=== PATIENT | female | born 1940 | race Caucasian/White ===

== ENCOUNTER → 2018-07-25 10:42 | Outpatient (CLI) | payer MEDICARE, SELFPAY ==
--- NOTE | 2018-07-25 | DI.RAD.S_ITS ---
PROCEDURE: XR CHEST 2V INDICATIONS: ACUTE BRONCHITIS TECHNIQUE: 2 views of the chest were acquired. COMPARISON: [facility], CHEST 2 VIEW, 09/12/2011, 13:34. [facility], CHEST 2 VIEW, 09/01/2013, 13:57. FINDINGS: Surgical changes and devices: None. Lungs and pleura: No pleural effusions or pneumothorax. Lungs are clear. Note is made of prominent asymmetric right first anterior rib costochondral calcification. Mediastinum: Mediastinal contours are normal. Heart size is normal. Bones and chest wall: No suspicious bony abnormalities. Soft tissues appear unremarkable. IMPRESSION: No acute cardiopulmonary disease. Dictated by: Junior ROJAS Interpreted: Gabby Altamirano MD on 07/25/2018 at 11:06 Approved by: Gabby Altamirano MD, PhD on 07/25/2018 at 14:36
== END ==
PROVIDERS: Family Provider Family Medicine; PCP Family Medicine; Visit Provider Family Medicine
DX: J20.9 Acute bronchitis, unspecified (principal)
CPT/HCPCS: 71046

== ENCOUNTER → 2019-12-25 12:25 | Outpatient (CLI) | payer MEDICARE, SELFPAY ==
--- NOTE | 2019-12-25 | DI.RAD.S_ITS ---
PROCEDURE: XR KNEE RT 3V INDICATIONS: RT KNEE PAIN TECHNIQUE: 3 views of the knee were acquired. COMPARISON: None. FINDINGS: Bones: No fractures or dislocations. No suspicious bony lesions. Lateral patellar tilt. Spurring at the superior pole of the patella. Mild narrowing of the medial lateral joint spaces. Scattered degenerative subchondral sclerosis and spurring. Small joint effusion. Scattered vascular calcifications noted IMPRESSION: Mild right knee joint degeneration Small joint effusion. If the patient's pain or other symptoms persist, consider further evaluation with MRI Dictated by: Omer Stahl M.D. on 12/25/2019 at 16:36 Approved by: Omer Stahl M.D. on 12/25/2019 at 16:37
== END ==
PROVIDERS: Family Provider Family Medicine; PCP Family Medicine; Referring Provider Family Medicine; Visit Provider Family Medicine
DX: M25.561 Pain in right knee (principal); M17.11 Unilateral primary osteoarthritis, right knee; M25.461 Effusion, right knee
CPT/HCPCS: 73560; 73562

== ENCOUNTER → 2022-09-13 13:59 | Outpatient (CLI) | payer MEDICARE, SELFPAY ==
--- NOTE | 2022-09-13 14:02 | DI.MG.S_ITS ---
BILATERAL DIGITAL SCREENING MAMMOGRAM 3D/2D WITH CAD: 09/13/2022 CLINICAL: Routine screening. Family history of breast cancer. Comparison is made to exams dated: 03/29/2021 mammogram, 03/14/2018 mammogram, and 03/12/2017 mammogram - [facility]. Both breasts are heterogeneously dense, which may obscure small masses (category c / 51-75% glandular tissue). Current study was also evaluated with a Computer Aided Detection (CAD) system. There are benign calcifications in the left breast. There also are benign post operative findings in the right breast. No significant masses, calcifications, or other findings are seen in either breast. There has been no significant interval change. IMPRESSION: BENIGN There is no mammographic evidence of malignancy. A 1 year screening mammogram is recommended. Based on the Tyrer Cuzick model (a risk assessment model) the patient's lifetime risk is 1.6% and her 10 year risk is 0.0%. According to the ACR, ACS, and NCCN guidelines, an annual breast MRI exam along with mammogram is recommended if the patient's lifetime risk is 20% or greater. This exam was interpreted at Station ID: [id number]. NOTE: For mammograms, a report in lay terms will be sent to the patient. Approximately 15% of breast malignancies will not be visualized mammographically. In the management of a palpable breast mass, a negative mammogram must not discourage biopsy of a clinically suspicious lesion. Electronically Signed By: Tasneem [email or web address]/benito:09/13/2022 14:37:54 letter sent: Normal Exam ACR BI-RADS Category 2: Benign Finding(s) 3342F
== END ==
PROVIDERS: Family Provider Family Medicine; PCP Family Medicine; Referring Provider Family Medicine; Visit Provider Family Medicine
DX: Z12.31 Encounter for screening mammogram for malignant neoplasm of breast (principal); Z80.3 Family history of malignant neoplasm of breast
CPT/HCPCS: 77063; 77067

== ENCOUNTER → 2023-12-12 11:43 | Outpatient (CLI) | payer MEDICARE, SELFPAY ==
--- NOTE | 2023-12-12 | DI.MG.S_ITS ---
BILATERAL DIGITAL SCREENING MAMMOGRAM 3D/2D WITH CAD: 12/12/2023 CLINICAL: .Routine screening. Family history of breast cancer. Comparison is made to exams dated: 09/13/2022 mammogram - [facility], 04/21/2021 mammogram, 03/29/2021 mammogram, 03/14/2018 mammogram, and 03/12/2017 mammogram - [facility]. Both breasts are heterogeneously dense, which may obscure small masses (category c / 51-75% glandular tissue). Current study was also evaluated with a Computer Aided Detection (CAD) system. There are benign calcifications in the left breast. There also are benign post operative findings in the right breast. No significant masses, calcifications, or other findings are seen in either breast. There has been no significant interval change. IMPRESSION: BENIGN There is no mammographic evidence of malignancy. A 1 year screening mammogram is recommended. Based on the Tyrer Cuzick model (a risk assessment model) the patient's lifetime risk is 0.6% and her 10 year risk is 0.0%. According to the ACR, ACS, and NCCN guidelines, an annual breast MRI exam along with mammogram is recommended if the patient's lifetime risk is 20% or greater. This exam was interpreted at Station ID: [id number]. NOTE: For mammograms, a report in lay terms will be sent to the patient. Approximately 15% of breast malignancies will not be visualized mammographically. In the management of a palpable breast mass, a negative mammogram must not discourage biopsy of a clinically suspicious lesion. Electronically Signed By: Severo [email or web address]/benito:12/12/2023 16:19:31 letter sent: Normal Exam ACR BI-RADS Category 2: Benign Finding(s) 3342F
== END ==
PROVIDERS: Family Provider Family Medicine; PCP Family Medicine; Referring Provider Family Medicine; Visit Provider Family Medicine
DX: Z12.31 Encounter for screening mammogram for malignant neoplasm of breast (principal); Z80.3 Family history of malignant neoplasm of breast; R92.333 Mammographic heterogeneous density, bilateral breasts
CPT/HCPCS: 77063; 77067

== ENCOUNTER 2024-09-16 12:52 | Inpatient (IN) | payer MEDICARE, SELFPAY ==
[2024-09-16] VITALS (9 sets, daily range): BP systolic 103–142; BP diastolic 57–74; PULSE 90–108; RESP 20–36; TEMP 37.1; O2SAT 89–92; BMI 28.0
--- NOTE | 2024-09-16 13:54 | DI.RAD.S_ITS ---
PROCEDURE: XR CHEST 1V INDICATIONS: Shortness of breath TECHNIQUE: One view of the chest was acquired. COMPARISON: None. FINDINGS: Surgical changes and devices: None. Lungs and pleura: Lungs are clear. No pleural effusions or pneumothorax. Peribronchial cuffing and increased interstitial markings. Mediastinum: Mediastinal contours appear normal. Heart size is mildly enlarged. Bones and chest wall: No suspicious bony lesions. Overlying soft tissues appear unremarkable. IMPRESSION: Peribronchial cuffing and increased interstitial markings, suggestive of pulmonary edema. Bronchitis with superimposed interstitial lung disease is also consideration. Dictated by: Hossein Collins M.D. on 09/16/2024 at 14:56 Approved by: Hossein Collins M.D. on 09/16/2024 at 14:58
--- NOTE | 2024-09-16 14:36 | EKG_ITS ---
[address] [address] Test Date: 2024-09-16 Pat Name: Julia Welch Department: Merged [facility] Room: Gender: Female Occupational Health Rn: MICHELLE : 1940 Requested By: Order Number: [id number] Reading MD: Matthew Dye Measurements Intervals [place] Rate: 102 P: 50 MA: 174 QRS: 4 QRSD: 96 T: 18 QT: 338 QTc: 440 Interpretive Statements Sinus tachycardia with premature atrial complexes Electronically Signed On 09-17-2024 19:03:41 PST by Matthew Dye
[2024-09-16] MEDS: methylPREDNISolone 125 MG/2 ML VIAL IV (14:45)
[2024-09-16 14:46] LABS: Add Manual Diff / Slide Review YES; Hematocrit 40.4 % (36-46); Hemoglobin 13.4 g/dL (12.0-16.0); Mean Corpuscular HGB Conc 33.2 % (30-36); Mean Corpuscular Hemoglobin 31.3 PG (26-34); Platelet Count 371 X10^3/uL (150-400); Red Cell Distribution Width 15.2 % (11.6-14.8); White Blood Cell Count 11.1 X10^3/uL (4.5-11.0)
[2024-09-16] MEDS: ALBUTEROL/IPRATROPIUM 3 ML AMPUL INH (14:46)
[2024-09-16 14:51] LABS: INR 1.1 (0.9-1.3)
[2024-09-16 14:55] LABS: Lactate (Lactic Acid) 1.3 mmol/L (0.7-2.1)
[2024-09-16 14:56] LABS: Alanine Aminotransferase 32 IU/L (<35); Albumin 3.9 g/dL (3.5-5.0); Albumin Globulin Ratio 1.2 (1.0-2.8); Alkaline Phosphatase 109 U/L (38-126); Aspartate Aminotransferase 34 IU/L (14-36); Bilirubin Total 0.7 mg/dL (0.2-1.3); Blood Urea Nitrogen 13 mg/dL (7-17); Calcium 9.1 mg/dL (8.4-10.2); Carbon Dioxide 26 mmol/L (22-32); Chloride 96 mmol/L (98-107); Estimated Glomerular Filt Rate > 60 mL/min (>60); Globulin 3.2 g/dL (1.7-4.1); Glucose 123 mg/dL (80-110); HEMOLYSIS < 15 (0-50); Potassium 3.6 mmol/L (3.4-5.1); Sodium 131 mmol/L (137-145); Total Protein 7.1 g/dL (6.3-8.2)
[2024-09-16 15:00] LABS: Neutrophils Absolute Manual 8880 /uL (3000-5900); RBC Morphology Normal Morphology; Total Cells Counted 100
[2024-09-16 15:08] LABS: NT-proBNP (BNP-Adult 18+) 2150 pg/mL (<450); Troponin I 0.014 ng/mL (0.01-0.034)
[2024-09-16 15:31] LABS: Adenovirus Not Detected (Not Detect); B. parapertussis Not Detected (Not Detecte); Bordetella pertussis Not Detected (Not Detect); Chlamydophila pneumoniae Not Detected (Not Detect); Coronavirus 229E Not Detected (Not Detect); Coronavirus HKU1 Not Detected (Not Detect); Coronavirus NL 63 Not Detected (Not Detect); Coronavirus OC43 Not Detected (Not Detect); Human Metapneumovirus Not Detected (Not Detect); Human Rhinovirus/Enterovirus Not Detected (Not Detect); Influenza A Not Detected (Not Detect); Influenza B Not Detected (Not Detect); Mycoplasma pneumoniae Not Detected (Not Detect); Parainfluenza Virus 1 Not Detected (Not Detect); Parainfluenza Virus 2 Not Detected (Not Detect); Parainfluenza Virus 3 Not Detected (Not Detect); Parainfluenza Virus 4 Not Detected (Not Detect); Respiratory Syncytial Virus Not Detected (Not Detect); SARS- CoV-2 Not Detected (Not Detecte)
[2024-09-16] MEDS: FUROSEMIDE 40 MG/4 ML VIAL IV (17:24)
--- NOTE | 2024-09-16 17:37 | ED_ITS ---
HPI - SOB/Dyspnea General Chief Complaint: Shortness of Breath/Dyspnea Stated Complaint: sob Time Seen by Provider: 09/16/24 17:05 Source: patient, RN notes reviewed and old records reviewed Mode of arrival: Ambulatory Limitations: no limitations History of Present Illness HPI Narrative: [age] year old female history of COPD, chronic tobacco use, hypertension, dyslipidemia, hypothyroidism who presents with complaint of increasing shortness of breath and cough. Patient states started having some mild symptoms on but Sunday really started getting increasingly short of breath has had productive sputum that was initially yellow in his now dark brown, she states no hemoptysis. She has had increasing dyspnea with exertion, she does note some orthopnea. No fevers that she is aware of. Denies any nasal congestion. Denies any chest pain or pressure. No syncope or lightheadedness. She has had some nausea today but no vomiting. No swelling of her extremities. No other GI or urinary symptoms. Patient states she uses Trelegy daily, takes medication for hypertension dyslipidemia no aspirin or other anticoagulants. No known cardiac history or cardiac interventions. States only prior surgeries right hip replacement. Describes allergy to sulfa. Does smoke daily has not had anything in the last several days because her breathing has been too difficult. No alcohol, no recreational drugs. Does not use home O2 states she used while hospitalized for hip replacement in the past but has never required oxygen otherwise. Dr. Friend is her primary care physician. Related Data Home Medications Medication Instructions Recorded Confirmed CHOLECALCIFEROL (VITAMIN D3) 1,000 iu PO ##0 01/06/11 (Vitamin D3) ACETAMINOPHEN (Acetaminophen) 2 tab PO PRN ##0 01/25/11 LEVOTHYROXINE SODIUM (Synthroid) 100 mcg PO QDAY ##0 01/25/11 Loratadine (Claritin) 10 mg PO QDAY ##0 01/25/11 Paroxetine Hydrochloride (Paxil) 40 mg PO PM ##0 01/25/11 [ESTRA-C] 1,000 mg PO QDAY ##0 01/25/11 [OMEGA FISH OIL] 1,000 mg PO QDAY ##0 01/25/11 amlodipine 5 mg tablet (Norvasc) 5 mg PO QDAY ##0 09/25/16 ezetimibe 10 mg tablet (Zetia) 10 mg PO QDAY ##0 09/25/16 fluticasone 100 mcg-salmeterol 50 ##0 09/25/16 mcg/dose blistr powdr for inhalation (Advair Diskus) olmesartan 20 mg tablet (Benicar) 20 mg PO QDAY ##0 09/25/16 olopatadine 0.1 % eye drops ##0 09/25/16 (Patanol) pantoprazole 40 mg tablet,delayed 40 mg PO QDAY ##0 09/25/16 release (Protonix) Allergies Allergy/AdvReac Type Severity Reaction Status Date / Time Sulfa (Sulfonamide Allergy Unknown Verified 09/16/24 14:45 Antibiotics) amlodipine AdvReac Unknown Verified 09/16/24 14:45 NSAIDS (Non-Steroidal AdvReac Unknown Verified 09/16/24 14:45 Anti-Inflamma Review of Systems Review of Systems ROS Unobtainable: All systems reviewed & are unremarkable except as noted in HPI and below Patient History Social History Smoking Status: Former smoker Smoking Status: Former smoker tobacco type: cigarettes Exam Narrative Exam Narrative: GENERAL: Alert and oriented x three, elderly female in moderate distress. HEENT: Head normocephalic, atraumatic, EOMI, pupils reactive, face symmetric, moist mucous membranes NECK: Supple, full range of motion CARDIOVASCULAR: Regular rate and rhythm without murmurs, rubs or gallops. No JVD. No edema bilateral lower extremities. RESPIRATORY: Breath sounds decreased bilaterally but equal, mild tachypnea. Patient has a very harsh wet sounding cough. Mild crackles at the base. ABDOMEN: Soft, nontender. Nondistended. Normoactive bowel sounds all 4 quadrants. No guarding or rebound, rigidity, no mass : No CVA tenderness EXTREMITIES: Normal range of motion, no clubbing or edema. Neurovascularly intact NEUROLOGICAL: Cranial nerves II through XII grossly intact. Moving all extremities SKIN: Warm, dry, no petechiae, no rashes or lesions. Initial Vital Signs Initial Vital Signs: Vital Signs Temperature 98.7 F 09/16/24 13:40 Pulse Rate 105 H 09/16/24 13:40 Respiratory Rate 24 09/16/24 13:40 Blood Pressure 120/73 09/16/24 13:40 Pulse Oximetry 89 L 09/16/24 13:40 Oxygen Delivery Method Room Air 09/16/24 13:40 Course Orders Ordered: ED Orders 09/16/24 13:54 XR chest 1V Stat EKG-12 Lead Stat Measure peak expiratory flow ONCE RT Consult Eval and Treat NOW 09/16/24 14:33 Complete Blood Count AUTO DIFF Stat Comprehensive Metabolic Panel Stat Lactate (Lactic Acid) Stat NT-proBNP (BNP-Adult 18+) Stat Prothrombin Time INR Stat Respiratory Panel (Film Array) Stat Sputum Culture Stat Troponin I Stat Discontinued Medications Albuterol/Ipratropium (Albuterol/Ipratropium 3 Ml Ampul) 3 ml INH NOW ONE Stop: 09/16/24 14:05 Last Admin: 09/16/24 14:46 Dose: 3 ml Documented By: ADRIAN Azithromycin (Azithromycin 250 Mg Tablet) 500 mg PO NOW ONE Stop: 09/16/24 17:46 Last Admin: 09/16/24 17:56 Dose: 500 mg Furosemide (Furosemide 40 Mg/4 Ml Vial) 40 mg IV NOW ONE Stop: 09/16/24 17:06 Last Admin: 09/16/24 17:24 Dose: 40 mg Documented By: JOSE FRANCISCO Ceftriaxone Sodium 1,000 mg/ (Sodium Chloride) 100 mls @ 200 mls/hr IV NOW ONE Stop: 09/16/24 17:41 Last Infusion: 09/16/24 18:34 Dose: Infused Methylprednisolone (Methylprednisolone 125 Mg/2 Ml Vial) 125 mg IV NOW ONE Stop: 09/16/24 14:05 Last Admin: 09/16/24 14:45 Dose: 125 mg Documented By: JOSE FRANCISCO Vital Signs Vital signs: Vital Signs - 8 hr 09/16/24 13:40 09/16/24 14:30 09/16/24 14:30 Temperature 98.7 F Pulse Rate 105 H 108 H Respiratory Rate 24 32 H Blood Pressure 120/73 142/74 H Pulse Oximetry 89 L 91 Oxygen Delivery Method Room Air Oxygen Flow Rate 09/16/24 15:00 09/16/24 15:00 09/16/24 15:30 Temperature Pulse Rate 99 H Respiratory Rate 36 H Blood Pressure 117/60 103/59 L Pulse Oximetry 92 Oxygen Delivery Method Oxygen Flow Rate 09/16/24 15:30 09/16/24 16:00 09/16/24 16:00 Temperature Pulse Rate 97 H 102 H Respiratory Rate 24 36 H Blood Pressure 122/68 Pulse Oximetry 89 L 89 L Oxygen Delivery Method Nasal Cannula Oxygen Flow Rate 1 1 09/16/24 16:30 09/16/24 16:30 09/16/24 17:00 Temperature Pulse Rate 96 H Respiratory Rate 23 Blood Pressure 114/57 L 119/67 Pulse Oximetry 90 L Oxygen Delivery Method Oxygen Flow Rate 1 09/16/24 17:00 Temperature Pulse Rate 94 H Respiratory Rate 20 Blood Pressure Pulse Oximetry 91 Oxygen Delivery Method Oxygen Flow Rate 2 MDM - SOB/Dyspnea Lab Data 09/16/24 14:33 09/16/24 14:33 Labs: Lab Results 09/16/24 Range/Units 14:33 WBC 11.1 H (4.5-11.0) X10^3/uL RBC 4.30 (4.0-5.2) X10^6/uL Hgb 13.4 (12.0-16.0) g/dL Hct 40.4 (36-46) % MCV 94.0 (80-100) fL MCH 31.3 (26-34) PG MCHC 33.2 (30-36) % RDW 15.2 H (11.6-14.8) % Plt Count 371 (150-400) X10^3/uL Neut % (Auto) Not Reportable Lymph % (Auto) Not Reportable [place] % (Auto) Not Reportable Eos % (Auto) Not Reportable Baso % (Auto) Not Reportable Lymph # (Auto) Not Reportable [place] # (Auto) Not Reportable Baso # (Auto) Not Reportable Total Counted 100 Seg Neutrophils % 55.0 (38-70) % Band Neutrophils % 25.0 H (3-7) % Lymphocytes % (Manual) 8.0 L (25-45) % Monocytes % (Manual) 11.0 (2-11) % Metamyelocytes % 1.0 H (-0) % Neutrophils # (Manual) 8880 H (9430-0630) /uL RBC Morphology Normal morphology PT 13.0 H (9.4-12.5) SECONDS INR 1.1 (0.9-1.3) Sodium 131 L (137-145) mmol/L Potassium 3.6 (3.4-5.1) mmol/L Chloride 96 L (98-107) mmol/L Carbon Dioxide 26 (22-32) mmol/L BUN 13 (7-17) mg/dL Creatinine 0.62 (0.52-1.04) mg/dL Estimated GFR > 60 (>60) mL/min BUN/Creatinine Ratio 21.0 (6-22) Glucose 123 H (80-110) mg/dL Lactate 1.3 (0.7-2.1) mmol/L Calcium 9.1 (8.4-10.2) mg/dL Total Bilirubin 0.7 (0.2-1.3) mg/dL AST 34 (14-36) IU/L ALT 32 (<35) IU/L Alkaline Phosphatase 109 (38-126) U/L Troponin I 0.014 (0.01-0.034) ng/mL NT-Pro-B Natriuret Pep 2150 H (<450) pg/mL Total Protein 7.1 (6.3-8.2) g/dL Albumin 3.9 (3.5-5.0) g/dL Globulin 3.2 (1.7-4.1) g/dL Albumin/Globulin Ratio 1.2 (1.0-2.8) Chlamy pneumoniae PCR Not detected (Not Detect) Adenovirus (PCR) Not detected (Not Detect) B. pertussis DNA (PCR) Not detected (Not Detect) B.parapertussis DNA PCR Not detected (Not Detecte) Coronavirus OC43 (PCR) Not detected (Not Detect) Coronavirus HKU1 (PCR) Not detected (Not Detect) Coronavirus 229E (PCR) Not detected (Not Detect) SARS-CoV-2 (PCR) Not detected (Not Detecte) Coronavirus NL63 (PCR) Not detected (Not Detect) Human Metapneumovir PCR Not detected (Not Detect) Influenza Type A (PCR) Not detected (Not Detect) Influenza Type B (PCR) Not detected (Not Detect) M. pneumoniae (PCR) Not detected (Not Detect) Parainfluenza 1 (PCR) Not detected (Not Detect) Parainfluenza 2 (PCR) Not detected (Not Detect) Parainfluenza 3 (PCR) Not detected (Not Detect) Parainfluenza 4 (PCR) Not detected (Not Detect) RSV (PCR) Not detected (Not Detect) Entero/Rhino (PCR) Not detected (Not Detect) Imaging Data Chest x-ray: Radiologist's Impression: [address] [address] XRay Report Signed Patient: Julia Welch MR#: [id number] : 1940 Acct:[id number] Age/Sex: 83 / F Date of Service: 09/16/24 Loc: ED Accession Number: [id number] Procedure: XR chest 1V Ordering Provider: Aurea Zapien D.O. PROCEDURE: XR CHEST 1V INDICATIONS: Shortness of breath TECHNIQUE: One view of the chest was acquired. COMPARISON: None. FINDINGS: Surgical changes and devices: None. Lungs and pleura: Lungs are clear. No pleural effusions or pneumothorax. Peribronchial cuffing and increased interstitial markings. Mediastinum: Mediastinal contours appear normal. Heart size is mildly enlarged. Bones and chest wall: No suspicious bony lesions. Overlying soft tissues appear unremarkable. IMPRESSION: Peribronchial cuffing and increased interstitial markings, suggestive of pulmonary edema. Bronchitis with superimposed interstitial lung disease is also consideration. Dictated by: Hossein Collins M.D. on 09/16/2024 at 14:56 Approved by: Hossein Collins M.D. on 09/16/2024 at 14:58 ECG Data Attestation: I personally reviewed and interpreted this ECG as follows: Interpretation: Sinus tachycardia rate of 102 MA 174 QRS of 96 QTC of 440. Nonspecific change. Appears to have little bit of motion artifact in lateral leads MDM Narrative Medical decision making narrative: 83-year-old female history of COPD who arrives slightly tachycardic hypoxic requiring 1 2 L of O2 which is atypical. Symptoms began last and has been worsening with increasing shortness of breath and exertional dyspnea. EKG shows sinus tachycardia. Chest x-ray shows peribronchial cuffing increased interstitial markings suggesting pulmonary edema bronchitis superimposed interstitial lung disease also consideration. Labs show a white count of 11, hemoglobin of 13 with platelets of 371, patient has 25% bands low lymphocytes with manual count of 8880 neutrophils. INR is 1, sodium is 131 potassium 3.6 chloride 96 CO2 is 26 with a BUN of 13 creatinine 0.62 glucose of 123 lactate 1.3 LFTs are negative troponin 0.014 with a BNP of 2150, no priors for comparison. Respiratory panel negative Patient received Solu-Medrol 125 mg, DuoNeb well as 40 mg Lasix patient states she feels much improved after these treatments. Patient has only had about 100 mL of urine out since her Lasix. She is still requiring 1-2 L to maintain 91%. States she was never been below 90% that she was aware of for her room air. Patient was also given Rocephin and azithromycin as there maybe a component of pneumonia has a bandemia of 25%. Spoke with hospitalist, Dr. Dye accepts for observation. Discharge Plan Departure Patient Disposition: Admitted as Observation Clinical Impression: Pneumonia, Acute exacerbation of chronic obstructive pulmonary disease Admit Date/Time: 09/16/24 18:37 Admit Provider: Matthew Dye
[2024-09-16] MEDS: cefTRIAXone 1,000 MG in SODIUM CHLORIDE 0.9% 100 ML 200 MG IV (17:56)
[2024-09-16] MEDS: AZITHROMYCIN 250 MG TABLET 500 MG PO (17:56)
--- NOTE | 2024-09-16 18:52 | DI.ECHO.S_ITS ---
[place] [facility]+ [facility] : : [address] : : [place] MD : : [id number] : : Phone: [phone] Echocardiogram Report + + :Name: FARZAD CALVILLO Study Date: 09/17/2024 Height: 62 in : :[facility] ReadingLocation: Weight: 153 lb : : Gender: Female BSA: 1.7 m2 : :: 1940 Age: 83 yrs BP: 112/70 mmHg: :Reason For Study: HYPOXIA : :Ordering Physician: NEO, : :ЮЛИЯ ALLEN Performed By: Nessa Rosen : :Referring: ЮЛИЯ LARSON : + + Interpretation Summary Normal sinus rhythm with heart rate 94-107 bpm during the exam. Normal LV size and wall thickness. Normal wall motion and LV systolic function. Ejection fraction 60-65%. Normal chamber sizes. No significant valvular abnormalities. Estimated PA systolic pressure is 45 mmHg assuming right atrial pressure of 8 mmHg. There is no prior echo available for comparison. Procedure: A two-dimensional transthoracic echocardiogram with color flow and Doppler was performed. The study quality was technically adequate. There is no prior echocardiogram noted for this patient. The patient was in sinus tachycardia with heart rates between 94-109 bpm during the exam. Left Ventricle: Proximal septal thickening is noted. The left ventricle is normal in size. The ejection fraction is estimated to be 60-65%. Right Ventricle: The right ventricle is normal in size, thickness and function. Atria: The left atrial size is normal. Right atrial size is normal. There is no Doppler evidence for an interatrial shunt. Mitral Valve: The mitral valve leaflets appear mildly thickened, but open well. There is mild mitral annular calcification. The mitral valve leaflets are slightly calcified. There is no mitral regurgitation noted. Aortic Valve: The aortic valve is trileaflet. The aortic valve opens well. There is no aortic valve stenosis. No aortic regurgitation is present. Tricuspid Valve: The tricuspid valve is normal in structure and function. There is mild tricuspid regurgitation. The right ventricular systolic pressure is estimated to be at least 45 mmHg based on an estimated right atrial pressure of 8 mm Hg. Pulmonic Valve: The pulmonic valve is not well seen, but is grossly normal. There is mild pulmonic regurgitation. Great Vessels: The aortic root is normal size. The dimensions of the ascending aorta are normal. The IVC is dilated (diameter is greater than 2.1 cm) yet it collapses greater than 50% with a sniff. This suggests a right atrial pressure of 8 mm Hg. Pericardium/ Pleura There is no pericardial effusion. There is no pleural effusion. MMode/2D Measurements & Calculations LVIDd: 4.7 cm LVOT diam: 2.0 cm LVIDs: 3.0 cm Ao root diam: 3.3 cm FS: 36.2 % asc Aorta Diam: 3.8 cm IVSd: 0.75 cm Ao Arch Diam (Prox Trans): 2.7 cm LVPWd: 0.76 cm LV draper. diameter/BSA (cm/m^2): 2.7 LV sys. diameter/BSA (cm/m^2): 1.7 LA A2 area: 20.8 cm2 RA long axis: 4.2 cm LA A4 area: 16.0 cm2 RA area: 11.1 cm2 LA length (vol): 5.1 cm RA vol: 24.6 ml LA vol: 55.8 ml RA : 14.4 ml/m2 LA vol index: 32.7 ml/m2 IVC diam: 2.3 cm RVD1 (basal): 3.7 cm TAPSE: 2.0 cm Doppler Measurements & Calculations Ao V2 max: 172.4 cm/sec LVOT Max Job: 138.5 cm/sec Ao V2 mean: 118.1 cm/sec LV V1 max P.7 mmHg Ao max P.9 mmHg LV V1 VTI: 26.3 cm Ao mean P.4 mmHg GREGORIO(I,D): 2.6 cm2 Ao V2 VTI: 31.7 cm GREGORIO(V,D): 2.5 cm2 sev ratio: 0.83 GREGORIO indexed to BSA (cm^2/m^2): 1.5 MV E max job: 82.5 cm/sec TR max job: 304.1 cm/sec MV A max job: 112.4 cm/sec TR max P.0 mmHg MV E/A: 0.73 PA V2 max: 98.3 cm/sec Med Peak E' Job: 8.3 cm/sec PA V2 mean: 68.8 cm/sec E/E' med: 9.9 PA mean P.1 mmHg Lat Peak E' Job: 10.0 cm/sec PA pr(Accel): 49.5 mmHg E/E' lat: 8.2 E/e' average: 9.1 MV dec time: 0.21 sec MVA(VTI): 2.8 cm2 MV V2 mean: 74.4 cm/sec SV(LVOT): 81.8 ml MV mean P.5 mmHg MV V2 VTI: 29.7 cm Electronically signed by: Connie Walters M.D. on Reading Physician:09/17/2024 02:49 PM
[2024-09-17] VITALS (14 sets, daily range): BP systolic 98–127; BP diastolic 64–77; PULSE 77–101; RESP 18–22; TEMP 35.9–36.9; O2SAT 92–97
[2024-09-17 04:41] LABS: Add Manual Diff / Slide Review NO; Basophils Absolute Auto 0 /uL (0-100); Basophils Percent Auto 0.3 % (0-2); Eosinophils Absolute Auto 0 /uL (0-450); Hematocrit 37.7 % (36-46); Hemoglobin 12.7 g/dL (12.0-16.0); Lymphocytes Absolute Auto 800 /uL (1100-4500); Lymphocytes Percent Auto 10.5 % (25-40); Mean Corpuscular HGB Conc 33.5 % (30-36); Mean Corpuscular Hemoglobin 31.5 PG (26-34); Mean Corpuscular Volume 93.9 fL (80-100); Monocytes Absolute Auto 300 /uL (0-900); Monocytes Percent Auto 3.5 % (3-14); Neutrophils Absolute Auto 6500 /uL (1500-7000); Neutrophils Percent Auto 85.7 % (50-75); Platelet Count 337 X10^3/uL (150-400); Red Blood Cell Count 4.02 X10^6/uL (4.0-5.2); Red Cell Distribution Width 15.2 % (11.6-14.8); White Blood Cell Count 7.6 X10^3/uL (4.5-11.0)
[2024-09-17 04:53] LABS: Alanine Aminotransferase 29 IU/L (<35); Albumin 3.4 g/dL (3.5-5.0); Albumin Globulin Ratio 1.1 (1.0-2.8); Alkaline Phosphatase 95 U/L (38-126); Aspartate Aminotransferase 27 IU/L (14-36); BUN Creatinine Ratio 29.9 (6-22); Bilirubin Total 0.4 mg/dL (0.2-1.3); Blood Urea Nitrogen 20 mg/dL (7-17); Calcium 8.5 mg/dL (8.4-10.2); Carbon Dioxide 28 mmol/L (22-32); Chloride 98 mmol/L (98-107); Estimated Glomerular Filt Rate > 60 mL/min (>60); Glucose 137 mg/dL (80-110); HEMOLYSIS < 15 (0-50); Magnesium 1.7 mg/dL (1.6-2.3); Potassium 3.3 mmol/L (3.4-5.1); Sodium 133 mmol/L (137-145); Total Protein 6.4 g/dL (6.3-8.2)
--- NOTE | 2024-09-17 05:18 | PM.HP.1 ---
History of Present Illness History of Present Illness Chief complaint: sob Narrative: 83-year-old male female with past medical history of COPD non O2 dependent, hypertension, lipidemia, hypothyroidism and chronic tobacco abuse presents with complain of shortness of breath and coughing. Per the patient report, over the last few days, the patient has been having increasing shortness of breath and cough. The patient also have orthopnea and with some leg swelling. The patient states that his cough has dark brown sputum. The patient has some nausea but denies any fever, chills, vomiting, chest pain, diarrhea. In our emergency room, patient was found to have signs of? volume overload. Chest x-ray shows pulmonary edema and possible interstitial marking. BNP was 2150s. No sepsis. The patient was given solumedrol,? IV Lasix 40 mg x 1, Azithromycin, Ceftrixone and nebs PFSH Medical History (Updated 09/16/24 @ 20:32 by Shahida Emery RN) H pylori ulcer GERD (gastroesophageal reflux disease) Depression Hyperthyroidism HTN (hypertension) Surgical History (Updated 09/16/24 @ 20:32 by Shahida Emery RN) H/O total hip arthroplasty Social History household members: children Smoking Status: Former smoker alcohol intake: never Meds Home Medications and Allergies Home Medications Medication Instructions Recorded Confirmed Type CHOLECALCIFEROL (VITAMIN D3) 1,000 iu PO DAILY ##0 01/06/11 09/16/24 History (Vitamin D3) ACETAMINOPHEN (Acetaminophen) 2 tab PO PRN ##0 01/25/11 09/16/24 History LEVOTHYROXINE SODIUM (Synthroid) 100 mcg PO QDAY ##0 01/25/11 09/16/24 History Loratadine (Claritin) 10 mg PO QDAY ##0 01/25/11 09/16/24 History Paroxetine Hydrochloride (Paxil) 40 mg PO PM ##0 01/25/11 09/16/24 History [ESTRA-C] 1,000 mg PO QDAY ##0 01/25/11 09/16/24 History [OMEGA FISH OIL] 1,000 mg PO QDAY ##0 01/25/11 09/16/24 History amlodipine 5 mg tablet (Norvasc) 5 mg PO QDAY ##0 09/25/16 09/16/24 History ezetimibe 10 mg tablet (Zetia) 10 mg PO QDAY ##0 09/25/16 09/16/24 History pantoprazole 40 mg tablet,delayed 40 mg PO QDAY ##0 09/25/16 09/16/24 History release (Protonix) Allergies Allergy/AdvReac Type Severity Reaction Status Date / Time Sulfa (Sulfonamide Allergy Unknown Verified 09/16/24 14:45 Antibiotics) amlodipine AdvReac Unknown Verified 09/16/24 14:45 NSAIDS (Non-Steroidal AdvReac Unknown Verified 09/16/24 14:45 Anti-Inflamma Review of Systems Review of Systems ROS: Yes All systems reviewed with the patient and are negative except as otherwise documented Exam Vital Signs (past 8 hours): - 09/17/24 00:00 09/17/24 04:00 Temperature 98.5 F 97.6 F Pulse Rate 82 77 Respiratory Rate 20 Blood Pressure 108/66 112/70 Pulse Oximetry 92 94 Oxygen Flow Rate 2 2 Fraction of Inspired Oxygen 28 SaO2/FiO2 Ratio 325 Oxygen Delivery Method Nasal Cannula Oxygen Flow Rate 2 Narrative Exam Narrative: GENERAL: The patient is not in any acute distressed. Awake and alert. HEENT: Nonicteric sclerae, PERRLA, EOMI. Oropharynx clear. Moist mucous membranes. Conjunctivae appear well perfused. HEART: Regular rate and rhythm without murmurs. traced extremities edema. LUNGS: mild bilateral basilar crackles but otherwise Clear to auscultation bilaterally. No wheezing or rhonchi ABDOMEN: Soft, positive bowel sounds, nontender. SKIN: No rash, no excessive bruising, petechiae, or purpura. NEUROLOGIC: AxO x 3. Cranial nerves II-XII intact without motor/sensory deficit. Objective Labs 09/17/24 04:29 09/17/24 04:29 Labs: Laboratory Results - last 24 hr 09/16/24 09/17/24 14:33 04:29 WBC 11.1 H 7.6 RBC 4.30 4.02 Hgb 13.4 12.7 Hct 40.4 37.7 MCV 94.0 93.9 MCH 31.3 31.5 MCHC 33.2 33.5 RDW 15.2 H 15.2 H Plt Count 371 337 Neut % (Auto) Not Reportable 85.7 H Lymph % (Auto) Not Reportable 10.5 L [place] % (Auto) Not Reportable 3.5 Eos % (Auto) Not Reportable 0.0 L Baso % (Auto) Not Reportable 0.3 Neut # (Auto) 6500 Lymph # (Auto) Not Reportable 800 L [place] # (Auto) Not Reportable 300 Eos # (Auto) 0 Baso # (Auto) Not Reportable 0 Total Counted 100 Seg Neutrophils % 55.0 Band Neutrophils % 25.0 H Lymphocytes % (Manual) 8.0 L Monocytes % (Manual) 11.0 Metamyelocytes % 1.0 H Neutrophils # (Manual) 8880 H RBC Morphology Normal morphology PT 13.0 H INR 1.1 Sodium 131 L 133 L Potassium 3.6 3.3 L Chloride 96 L 98 Carbon Dioxide 26 28 BUN 13 20 H Creatinine 0.62 0.67 Estimated GFR > 60 > 60 BUN/Creatinine Ratio 21.0 29.9 H Glucose 123 H 137 H Lactate 1.3 Calcium 9.1 8.5 Magnesium 1.7 Total Bilirubin 0.7 0.4 AST 34 27 ALT 32 29 Alkaline Phosphatase 109 95 Troponin I 0.014 NT-Pro-B Natriuret Pep 2150 H Total Protein 7.1 6.4 Albumin 3.9 3.4 L Globulin 3.2 3.0 Albumin/Globulin Ratio 1.2 1.1 Chlamy pneumoniae PCR Not detected Adenovirus (PCR) Not detected B. pertussis DNA (PCR) Not detected B.parapertussis DNA PCR Not detected Coronavirus OC43 (PCR) Not detected Coronavirus HKU1 (PCR) Not detected Coronavirus 229E (PCR) Not detected SARS-CoV-2 (PCR) Not detected Coronavirus NL63 (PCR) Not detected Human Metapneumovir PCR Not detected Influenza Type A (PCR) Not detected Influenza Type B (PCR) Not detected M. pneumoniae (PCR) Not detected Parainfluenza 1 (PCR) Not detected Parainfluenza 2 (PCR) Not detected Parainfluenza 3 (PCR) Not detected Parainfluenza 4 (PCR) Not detected RSV (PCR) Not detected Entero/Rhino (PCR) Not detected Assessment & Plan Assessment & Plan narrative: COPD exacerbation. Admit the patient to medical telemetry inpatient. Continue Solumedrol and nebulizer. Possible bronchitis. Continue Azithromycin and Ceftriaxone Possible acute HF. S/P IV Lasix 40 mg x1 in the ER. Continue 40 mg IV daily. Strict I/Os and daily weight. Echo pending. Hypothyroidism. Resume home Synthroid Hypertension monitor blood pressure and resume home medication accordingly. DVT prophylaxis Lovenox. Code status full code? Disposition likely home in 2 to 3 days Time-Based Coding :: [TOTAL MINUTES] spent with patient and on the chart (including review of chart, obtaining history, exam, reviewing outside data, placing orders, documenting exam and treatment plan, and counseling patient) on [DATE].
[2024-09-17] MEDS: PANTOPRAZOLE DR 40 MG TABLET PO (05:55)
[2024-09-17] MEDS: LEVOTHYROXINE 100 MCG TABLET PO (05:55)
[2024-09-17] MEDS: methylPREDNISolone 125 MG/2 ML VIAL 60 MG IV ×2 (06:13)
[2024-09-17] MEDS: BUDESONIDE 0.5 MG/2 ML NEB INH ×2 (08:43→19:26)
[2024-09-17] MEDS: ALBUTEROL/IPRATROPIUM 3 ML AMPUL INH ×5 (08:44→23:20)
[2024-09-17] MEDS: predniSONE 20 MG TABLET 40 MG PO (08:47)
[2024-09-17] MEDS: FUROSEMIDE 40 MG/4 ML VIAL IV (08:47)
[2024-09-17] MEDS: EZETIMIBE 10 MG TABLET PO (08:48)
[2024-09-17] MEDS: ENOXAPARIN 40 MG/0.4 ML SYRINGE SUBCUT (08:48)
[2024-09-17] MEDS: LORATADINE 10 MG TABLET PO (08:48)
--- NOTE | 2024-09-17 11:07 | CM.DANOTE ---
DCP Assessment note pt is a 83yo F here with COPD exacerbation and pneumonia. possible HF. PCP Chris Friend Payer Medicare and [employer] LAPIDARIST reviewed EMR. Per chart review, pt on 2ltrs O2 at this time, no O2 at baseline. Per RN report, pt weaker than normal right now, 1PA to bedside commode. Per hospitalist in morning rounds, echo pending. likely here another few days. LAPIDARIST entered room and introduced self and role. pt resting in bed. Lives at home in [place] with son Junior. Has a walker/cane from previous surgery but does not use them. no hx of SNF or HH. frequently goes to gym and out to old [employer] home to play cards with her friends. does not drive, Junior or Ashley takes her places. Has hired housekeepers to manage home chores. Reports feeling weaker than normal with mobility. Open to considering PT tomorrow if still weak, does not think she would want HH but will think about it. Denies any DCP/CM needs at this time. P: home with son to transport in P[place] when medically stable. r/o need for PT closer to dc. no identified barriers to safe dc home at this time. CM team will continue to follow closely RADHA Lamar Discharge Planning/Care Management CM Discharge Assessment Start: 09/17/24 11:05 Freq: Status: Active Protocol: Document 09/17/24 11:05 (Rec: 09/17/24 11:07 [id number]) Discharge Planning Assessment Assigned Personnel Assistant RADHA Robison DPOA/Assigned Designee Name zoya Pacheco Contact Information [phone] Advance Directives? No History Provided By Patient Prior Living Arrangements House Household Members children Type of transporation used prior to Relies on Others admit Comment either son Junior or ashley Independent with ADL's Yes Is patient alert and oriented? Yes Needs Assistance With Home Chores / Shopping Comment pt has housekeepers come in to clean home DME Already Rented / Owned FWW / Walker,Cane Comment owns a walker and cane from previous hip surgery but does not use them Comment r/o need for PT eval/HH closer to dc Discharge Plan Home Transportation Arrangement zoya Pacheco in POV Referrals Initiated None needed Whiteboard Updated in Patient Room with Yes name and ext. # of Personnel Assistant Review Status In Process Please Provide Date Initial DC 09/17/24 Assessment Was Performed Next Review Type Continued Stay Review
[2024-09-17] MEDS: POTASSIUM CHLORIDE 20 MEQ TAB 40 MEQ PO (11:09)
--- NOTE | 2024-09-17 13:06 | P.PN_ITS ---
Subjective Subjective Interval history: 83 year old female admitted with hypoxic respiratory failure, desat on room air to 87% at bedside during today's exam. Improved with 1L. She feels improved today with improved dyspnea. States her son has been sneezing and coughing but he has lots of allergies and that is not unusual for him. Respiratory culture has a gram negative coccobacilli. Placed on droplet isolation for possible pertussis as the ER provider yesterday described her cough (now improved today) as whooping cough like. Exam Vital Signs (past 8 hours): - 09/17/24 08:00 09/17/24 08:48 09/17/24 09:24 Temperature 96.6 F L Pulse Rate 81 Respiratory Rate 18 Blood Pressure 127/77 Pulse Oximetry 93 95 93 Oxygen Delivery Method Nasal Cannula Nasal Cannula Oxygen Flow Rate 0 3 2 Fraction of Inspired Oxygen 28 09/17/24 11:34 Temperature Pulse Rate 98 H Respiratory Rate 18 Blood Pressure Pulse Oximetry 92 Oxygen Delivery Method Nasal Cannula Oxygen Flow Rate 2 Fraction of Inspired Oxygen Fraction of Inspired Oxygen 28 SaO2/FiO2 Ratio 332 Oxygen Delivery Method Nasal Cannula Oxygen Flow Rate 2 Narrative Exam Narrative: GENERAL: The patient is not in any acute distressed. Awake and alert. HEENT: Nonicteric sclerae, PERRLA, EOMI. Oropharynx clear. Moist mucous membranes. Conjunctivae appear well perfused. HEART: Regular rate and rhythm without murmurs. traced extremities edema. LUNGS: mild bilateral basilar crackles but otherwise Clear to auscultation bilaterally. No wheezing or rhonchi ABDOMEN: Soft, positive bowel sounds, nontender. SKIN: No rash, no excessive bruising, petechiae, or purpura. NEUROLOGIC: AxO x 3. Cranial nerves II-XII intact without motor/sensory deficit. Objective Labs 09/17/24 04:29 09/17/24 04:29 Labs: Laboratory Results - last 24 hr 09/16/24 09/17/24 14:33 04:29 WBC 11.1 H 7.6 RBC 4.30 4.02 Hgb 13.4 12.7 Hct 40.4 37.7 MCV 94.0 93.9 MCH 31.3 31.5 MCHC 33.2 33.5 RDW 15.2 H 15.2 H Plt Count 371 337 Neut % (Auto) Not Reportable 85.7 H Lymph % (Auto) Not Reportable 10.5 L [place] % (Auto) Not Reportable 3.5 Eos % (Auto) Not Reportable 0.0 L Baso % (Auto) Not Reportable 0.3 Neut # (Auto) 6500 Lymph # (Auto) Not Reportable 800 L [place] # (Auto) Not Reportable 300 Eos # (Auto) 0 Baso # (Auto) Not Reportable 0 Total Counted 100 Seg Neutrophils % 55.0 Band Neutrophils % 25.0 H Lymphocytes % (Manual) 8.0 L Monocytes % (Manual) 11.0 Metamyelocytes % 1.0 H Neutrophils # (Manual) 8880 H RBC Morphology Normal morphology PT 13.0 H INR 1.1 Sodium 131 L 133 L Potassium 3.6 3.3 L Chloride 96 L 98 Carbon Dioxide 26 28 BUN 13 20 H Creatinine 0.62 0.67 Estimated GFR > 60 > 60 BUN/Creatinine Ratio 21.0 29.9 H Glucose 123 H 137 H Lactate 1.3 Calcium 9.1 8.5 Magnesium 1.7 Total Bilirubin 0.7 0.4 AST 34 27 ALT 32 29 Alkaline Phosphatase 109 95 Troponin I 0.014 NT-Pro-B Natriuret Pep 2150 H Total Protein 7.1 6.4 Albumin 3.9 3.4 L Globulin 3.2 3.0 Albumin/Globulin Ratio 1.2 1.1 Chlamy pneumoniae PCR Not detected Adenovirus (PCR) Not detected B. pertussis DNA (PCR) Not detected B.parapertussis DNA PCR Not detected Coronavirus OC43 (PCR) Not detected Coronavirus HKU1 (PCR) Not detected Coronavirus 229E (PCR) Not detected SARS-CoV-2 (PCR) Not detected Coronavirus NL63 (PCR) Not detected Human Metapneumovir PCR Not detected Influenza Type A (PCR) Not detected Influenza Type B (PCR) Not detected M. pneumoniae (PCR) Not detected Parainfluenza 1 (PCR) Not detected Parainfluenza 2 (PCR) Not detected Parainfluenza 3 (PCR) Not detected Parainfluenza 4 (PCR) Not detected RSV (PCR) Not detected Entero/Rhino (PCR) Not detected PFSH Medical History (Updated 09/17/24 @ 06:27 by Shahida Emery RN) COPD (chronic obstructive pulmonary disease) H pylori ulcer GERD (gastroesophageal reflux disease) Depression Hyperthyroidism HTN (hypertension) Surgical History (Updated 09/16/24 @ 20:32 by Shahida Emery RN) H/O total hip arthroplasty Social History household members: children Smoking Status: Former smoker alcohol intake: never Assessment & Plan Assessment & Plan narrative: Bacterial pneumonia with gram negative coccobacilli with acute respiratory failure with hypoxia. - continue ceftriaxone and azithromycin IV - await culture results as may affect isolation recommendations after discharge. Placed on isolation for possible pertussis. - Elevated Class IV PSI score, can change to inpatient status - clinically improved today, WBC now normal, patient improved but still requiring supplemental oxygen today. Possible COPD with exacerbation - continue prednisone 40 mg daily. Possible acute heart failure. S/P IV Lasix 40 mg x1 in the ER. Continue 40 mg IV daily. ProBNP 2150. Strict I/Os and daily weight. Echo still pending but was performed this morning. Troponin was within normal limits, no chest pain, and EKG shows no evidence of acute ischemic changes. Hypothyroidism. Resume home Synthroid Hypertension monitor blood pressure and resume home medication accordingly. currently holding home amlodipine 5 mg. DVT prophylaxis Lovenox. Code status full code, surrogate is patient's son Disposition, inpatient likely home in 1-2 more days if continued improvement and resolution of hypoxia. Time-Based Coding :: [TOTAL MINUTES] spent with patient and on the chart (including review of chart, obtaining history, exam, reviewing outside data, placing orders, documenting exam and treatment plan, and counseling patient) on [DATE].
[2024-09-17] MEDS: AZITHROMYCIN 500 MG in DEXTROSE 5% IN WATER 250 ML 250 MG IV (18:48)
[2024-09-17] MEDS: cefTRIAXone 1,000 MG in SODIUM CHLORIDE 0.9% 100 ML 200 MG IV (20:17)
[2024-09-17] MEDS: PARoxetine 20 MG TABLET 40 MG PO (20:17)
[2024-09-18] VITALS (7 sets, daily range): BP systolic 113–122; BP diastolic 63–70; PULSE 79–106; RESP 17–20; TEMP 36.4–36.6; O2SAT 91–96
[2024-09-18] MEDS: PANTOPRAZOLE DR 40 MG TABLET PO (05:24)
[2024-09-18] MEDS: LEVOTHYROXINE 100 MCG TABLET PO (05:24)
[2024-09-18 05:33] LABS: Add Manual Diff / Slide Review NO; Basophils Absolute Auto 0 /uL (0-100); Basophils Percent Auto 0.1 % (0-2); Eosinophils Absolute Auto 0 /uL (0-450); Hemoglobin 12.1 g/dL (12.0-16.0); Lymphocytes Absolute Auto 1100 /uL (1100-4500); Mean Corpuscular HGB Conc 33.6 % (30-36); Mean Corpuscular Hemoglobin 31.2 PG (26-34); Mean Corpuscular Volume 92.9 fL (80-100); Monocytes Absolute Auto 600 /uL (0-900); Monocytes Percent Auto 5.3 % (3-14); Neutrophils Absolute Auto 10100 /uL (1500-7000); Neutrophils Percent Auto 85.6 % (50-75); Platelet Count 374 X10^3/uL (150-400); Red Blood Cell Count 3.88 X10^6/uL (4.0-5.2); Red Cell Distribution Width 14.9 % (11.6-14.8); White Blood Cell Count 11.8 X10^3/uL (4.5-11.0)
[2024-09-18 05:45] LABS: Alanine Aminotransferase 40 IU/L (<35); Albumin 3.2 g/dL (3.5-5.0); Albumin Globulin Ratio 1.2 (1.0-2.8); Alkaline Phosphatase 109 U/L (38-126); Aspartate Aminotransferase 46 IU/L (14-36); BUN Creatinine Ratio 42.1 (6-22); Bilirubin Total 0.3 mg/dL (0.2-1.3); Blood Urea Nitrogen 32 mg/dL (7-17); Calcium 8.6 mg/dL (8.4-10.2); Carbon Dioxide 27 mmol/L (22-32); Chloride 96 mmol/L (98-107); Estimated Glomerular Filt Rate > 60 mL/min (>60); Globulin 2.7 g/dL (1.7-4.1); Glucose 134 mg/dL (80-110); HEMOLYSIS < 15 (0-50); Magnesium 1.8 mg/dL (1.6-2.3); Potassium 3.6 mmol/L (3.4-5.1); Sodium 130 mmol/L (137-145); Total Protein 5.9 g/dL (6.3-8.2)
[2024-09-18] MEDS: ALBUTEROL/IPRATROPIUM 3 ML AMPUL INH ×2 (07:51→10:29)
[2024-09-18] MEDS: BUDESONIDE 0.5 MG/2 ML NEB INH (07:51)
[2024-09-18] MEDS: FUROSEMIDE 40 MG/4 ML VIAL IV (08:42)
[2024-09-18] MEDS: LORATADINE 10 MG TABLET PO (08:42)
[2024-09-18] MEDS: ENOXAPARIN 40 MG/0.4 ML SYRINGE SUBCUT (08:42)
[2024-09-18] MEDS: predniSONE 20 MG TABLET 40 MG PO (08:42)
--- NOTE | 2024-09-18 14:30 | P.DS_ITS ---
History of Present Illness History of Present Illness Chief complaint: sob Narrative: Per H&P: 83-year-old male female with past medical history of COPD non O2 dependent, hypertension, lipidemia, hypothyroidism and chronic tobacco abuse presents with complain of shortness of breath and coughing. Per the patient report, over the last few days, the patient has been having increasing shortness of breath and cough. The patient also have orthopnea and with some leg swelling. The patient states that his cough has dark brown sputum. The patient has some nausea but denies any fever, chills, vomiting, chest pain, diarrhea. In our emergency room, patient was found to have signs of? volume overload. Chest x-ray shows pulmonary edema and possible interstitial marking. BNP was 2150s. No sepsis. The patient was given solumedrol,? IV Lasix 40 mg x 1, Azithromycin, Ceftrixone and nebs Discharge Providers Provider Date of admission: 09/17/24 11:06 Discharge Date: 09/18/24 Primary care physician: Chris Friend MD Consults: 09/18/24 10:12 Consult to Physical Therapy Evaluate & Treat Comment: Physician Instructions: Evaluate and Treat 09/18/24 10:27 Consult to Physical Therapy Evaluate & Treat Comment: Physician Instructions: Evaluate and Treat Discharge provider: Shadi Philippe MD Summary Hospital Course Discharge Diagnosis: 1. Haemophilus pneumonia with gram negative coccobacilli with acute respiratory failure with hypoxia. Present on admission and improved. - Sputum with Haemophilus. She was able to come off from oxygen on the day of discharge. 2. Possible COPD with exacerbation. Present on admission and improved. - Was given prednisone 40 mg daily. no wheezing in the day of discharge. 3. Hypothyroidism. Present on admission and stable. -Resume home Synthroid 4. Hypertension , present on admission and stable. - monitor blood pressure and resume home medication accordingly. currently holding home amlodipine 5 mg. Hospital Course: She was admitted for pneumonia and COPD exacerbation and treated with IV ceftriaxone and azithromycin. She was able to wean off from oxygen without difficulty and was able to ambulate on the day of discharge. She had no fevers and normal labs. There was concern of the possibility of heart failure, an echo was obtained and was unremarkable. She was eager to return home and her son was happy to bring her home on September 18. She will continue antibiotics for an additional 5 days which would be directed at Haemophilus. She declines home health with physical therapy and nursing. Status at Discharge Cognitive/behavioral status at discharge: oriented Functional status at discharge: independent ambulation Overall status at discharge: patient is back to baseline Time Spent with Patient Time spent: Greater than 30 minutes Exam Vital Signs (past 8 hours): - 09/18/24 07:00 09/18/24 07:52 09/18/24 08:00 Temperature 97.7 F Pulse Rate 86 106 H Respiratory Rate 18 17 Blood Pressure 122/70 Pulse Oximetry 96 96 94 Oxygen Delivery Method Nasal Cannula Nasal Cannula Oxygen Flow Rate 2 2 2 Fraction of Inspired Oxygen 28 09/18/24 10:29 Temperature Pulse Rate 96 H Respiratory Rate 20 Blood Pressure Pulse Oximetry 91 Oxygen Delivery Method Nasal Cannula Oxygen Flow Rate 1 Fraction of Inspired Oxygen 24 Fraction of Inspired Oxygen 24 SaO2/FiO2 Ratio 379 Oxygen Delivery Method Nasal Cannula Oxygen Flow Rate 1 Narrative Exam Narrative: NAD, alert and oriented. Fluent speech. Lungs are clear, normal rate and effort. No real wheezing. Heart is regular, no murmur gallop or rub. Abdomen is soft, non distended. Extremities are free of edema. Objective ECG Impression: Rate: 102 P: 50 VA: 174 QRS: 4 QRSD: 96 T: 18 QT: 338 QTc: 440 Interpretive Statements Sinus tachycardia with premature atrial complexes Imaging Echo: Radiologist's impression: Normal sinus rhythm with heart rate 94-107 bpm during the exam. Normal LV size and wall thickness. Normal wall motion and LV systolic function. Ejection fraction 60-65%. Normal chamber sizes. No significant valvular abnormalities. Estimated PA systolic pressure is 45 mmHg assuming right atrial pressure of 8 mmHg. There is no prior echo available for comparison. Chest x-ray: Radiologist's impression: Peribronchial cuffing and increased interstitial markings, suggestive of pulmonary edema. Bronchitis with superimposed interstitial lung disease is also consideration. Labs 09/18/24 04:46 09/18/24 04:46 Labs: Laboratory Results - last 24 hr 09/18/24 04:46 WBC 11.8 H D RBC 3.88 L Hgb 12.1 Hct 36.0 MCV 92.9 MCH 31.2 MCHC 33.6 RDW 14.9 H Plt Count 374 Neut % (Auto) 85.6 H Lymph % (Auto) 9.0 L [place] % (Auto) 5.3 Eos % (Auto) 0.0 L Baso % (Auto) 0.1 Neut # (Auto) 14980 H Lymph # (Auto) 1100 [place] # (Auto) 600 Eos # (Auto) 0 Baso # (Auto) 0 Sodium 130 L Potassium 3.6 Chloride 96 L Carbon Dioxide 27 BUN 32 H Creatinine 0.76 Estimated GFR > 60 BUN/Creatinine Ratio 42.1 H Glucose 134 H Calcium 8.6 Magnesium 1.8 Total Bilirubin 0.3 AST 46 H ALT 40 H Alkaline Phosphatase 109 Total Protein 5.9 L Albumin 3.2 L Globulin 2.7 Albumin/Globulin Ratio 1.2 PFSH Medical History COPD (chronic obstructive pulmonary disease) H pylori ulcer GERD (gastroesophageal reflux disease) Depression Hyperthyroidism HTN (hypertension) Surgical History H/O total hip arthroplasty Social History household members: children Smoking Status: Former smoker alcohol intake: never Discharge Assessment & Plan Assessment and Plan Assessment: 1. Haemophilus pneumonia with gram negative coccobacilli with acute respiratory failure with hypoxia. Present on admission and improved. - Sputum with Haemophilus. She was able to come off from oxygen on the day of discharge. 2. Possible COPD with exacerbation. Present on admission and improved. - Was given prednisone 40 mg daily. no wheezing in the day of discharge. Plan of Treatment: Discharge home to the care of her son with amoxicillin 500 t.i.d. for 5 additional days for Haemophilus. She will call her primary care and set up an appointment for next week. Discharge Plan Discharge Plan Patient Disposition: Home Provider Discharge Comment: stable for discharge home, she declines home health. Her son appears to be comfortable taking her home as is. Discharge orders & Medications Prescriptions: New amoxicillin 500 mg capsule 500 mg PO Q8H Qty: 15 0RF Continued CHOLECALCIFEROL (VITAMIN D3) (Vitamin D3) 1,000 units tablet 1,000 iu PO DAILY Qty: 0 [ESTRA-C] 1,000 mg PO QDAY Qty: 0 LEVOTHYROXINE SODIUM (Synthroid) 100 mcg PO QDAY Qty: 0 Paroxetine Hydrochloride (Paxil) 40 mg PO PM Qty: 0 Loratadine (Claritin) 10 mg PO QDAY Qty: 0 ACETAMINOPHEN (Acetaminophen) 2 tab PO PRN Qty: 0 [OMEGA FISH OIL] 1,000 units tablet 1,000 mg PO QDAY Qty: 0 pantoprazole [Protonix] 40 MG tablet,delayed release (DR/EC) 40 mg PO QDAY Qty: 0 amlodipine [Norvasc] 5 MG tablet 5 mg PO QDAY Qty: 0 ezetimibe [Zetia] 10 MG tablet 10 mg PO QDAY Qty: 0 Follow up/Referrals: Chris Friend MD [Primary Care Provider] - Discharge Health Status Multidrug resistant organism: No MDRO Diet/Activity/Treatments Diet: Regular Skin/Wound/Dressing Care Report to your healthcare provider any signs of infection, such as:: chills, fever Visit Report/Discharge Packet Instructions: DI for Pneumonia -- Adult Stand Alone Forms: Patient Portal/API Discharge Data Primary Care Provider: Chris Friend
--- NOTE | 2024-09-18 14:30 | CM.DPNOTE ---
DCP note CHIEF D[employer]IA OFFICER reviewed EMR. Per hospitalist in morning rounds, anticipate dc later today. Per RN, likely would benefit from PT. provider placed PT order. Per provider in afternoon, talked to pt, pt not interested in HH at this time. Son Junior in room to transport home. does not anticipate any CM/DCP needs. P: home with son to transport in POV today, f/u with PCP in a week recommended. CM team will continue to follow as needed RADHA Lamar
--- NOTE | 2024-09-18 16:07 | PC.NURSE ---
Patient is A&OX4, VSS, afebrile. She is weaned to room air today and tolerates this well. She is encouraged to use IS. She states she feels jittery after steroid and nebulizers. She states SOB is greatly improved and is able to walk to BR multiple times from chair and tolerates slight activity well. evaluates patient at bedside and clears her for discharge home with son. She verbalizes understanding of medications, s/sx of infection, respiratory distress. She reports she has a pulse ox at home and will monitor her 02 levels. Patient is escorted via w/ch with all of her personal belongings to private vehicle with her son this afternoon at 1530.
== END 2024-09-18 15:25 | disposition home or self-care (01) | DRG 177 ==
LOC: ED 18:34 → AC 18:37
PROVIDERS: Admitting Provider Internal Medicine; Emergency Provider Emergency Medicine; Family Provider Family Medicine; PCP Family Medicine; Referring Provider Emergency Medicine; Visit Provider Internal Medicine
DX: J15.69 Pneumonia due to other Gram-negative bacteria (principal); J96.01 Acute respiratory failure with hypoxia; J44.1 Chronic obstructive pulmonary disease with (acute) exacerbation; E03.9 Hypothyroidism, unspecified; I10 Essential (primary) hypertension; K21.9 Gastro-esophageal reflux disease without esophagitis; Z87.891 Personal history of nicotine dependence
CPT/HCPCS: 36415; 71045; 80053; 83605; 83735; 83880; 84484; 85007; 85025; 85610; 87070; 87077; 87185; 87205; 87633; 93005; 93306; 94640; 94760; 96365; 96375; 99285; G0378; J0696; J1650; J1940; J2919

== ENCOUNTER → 2024-09-29 11:51 | Outpatient (CLI) | payer MEDICARE, SELFPAY ==
[2024-09-16 19:44] VITALS: BMI 28.0
--- NOTE | 2024-09-29 11:54 | DI.RAD.S_ITS ---
PROCEDURE: XR CHEST 2V INDICATIONS: Pneumonia, unspecified organism TECHNIQUE: 2 views of the chest were acquired. COMPARISON: [facility], CR, XR CHEST 1V, 09/16/2024, 14:32. FINDINGS: Surgical changes and devices: None. Lungs and pleura: Lungs are clear. No pleural effusions or pneumothorax. Mediastinum: Mediastinal contours are normal. Heart size is normal. Bones and chest wall: No suspicious bony abnormalities. Soft tissues appear unremarkable. IMPRESSION: No acute pulmonary process. Dictated by: Vanessa Nino M.D. on 09/29/2024 at 16:36 Approved by: Vanessa Nino M.D. on 09/29/2024 at 16:39
== END ==
PROVIDERS: Family Provider Family Medicine; PCP Family Medicine; Referring Provider Family Medicine; Visit Provider Family Medicine
DX: J18.9 Pneumonia, unspecified organism (principal); J44.9 Chronic obstructive pulmonary disease, unspecified
CPT/HCPCS: 71046

== ENCOUNTER → 2025-01-05 13:29 | Outpatient (CLI) | payer MEDICARE, SELFPAY ==
[2024-09-16 19:44] VITALS: BMI 28.0
--- NOTE | 2025-01-05 13:31 | DI.MG.S_ITS ---
MM screening mammo BI: 01/05/2025. BI-RADS: 1 CLINICAL: 84-year old female for bilateral screening mammogram. No Tyrer-Cuzick risk score calculation due to patient's age being over 85 years old. Current reported family history of breast cancer: mother. PRIOR EXAMS 12/12/2023, 09/13/2022, 04/21/2021, 03/29/2021. MAMMOGRAPHY TECHNIQUE: 2D and 3D (tomosynthesis) digital mammographic views obtained, with additional images as needed for full coverage. Current study was also evaluated with a Computer Aided Detection (CAD) system. DENSITY C. The breasts are heterogeneously dense, which may obscure small masses. MAMMOGRAPHY FINDINGS Bilateral: No suspicious mass, asymmetry, microcalcification, or other abnormality seen. IMPRESSION: * No evidence of malignancy. RECOMMENDATIONS Bilateral * Annual screening mammography. OVERALL ASSESSMENT CATEGORY BI-RADS-1: Negative. The [employer] recommends annual screening mammography beginning at age 40 for women with average risk of breast cancer. ELECTRONICALLY SIGNED: Severo Davidson M.D. on 01/05/2025 at 06:37:54 PM PT Interpreting Station ID: [id number]
== END ==
PROVIDERS: Family Provider Family Medicine; PCP Family Medicine; Referring Provider Family Medicine; Visit Provider Family Medicine
DX: Z12.31 Encounter for screening mammogram for malignant neoplasm of breast (principal); R92.333 Mammographic heterogeneous density, bilateral breasts; Z80.3 Family history of malignant neoplasm of breast
CPT/HCPCS: 77063; 77067

== ENCOUNTER → 2025-07-22 12:27 | Outpatient (CLI) | payer MEDICARE, SELFPAY ==
[2025-06-17 20:30] VITALS: BMI 27.4
--- NOTE | 2025-07-22 12:30 | DI.RAD.S_ITS ---
PROCEDURE: XR CHEST 2V INDICATIONS: Pneumonia, unspecified organism TECHNIQUE: 2 views of the chest were acquired. COMPARISON: [facility], CR, XR CHEST 1V, 06/17/2025, 17:36. [facility], CR, XR CHEST 2V, 09/29/2024, 12:06. FINDINGS: Surgical changes and devices: None. Lungs and pleura: Lungs are clear. No pleural effusions or pneumothorax. Mediastinum: Mediastinal contours are normal. Heart size is normal. Bones and chest wall: No suspicious bony abnormalities. Soft tissues appear unremarkable. IMPRESSION: No acute cardiopulmonary abnormality is seen. Dictated by: Haile Machado M.D. on 07/22/2025 at 15:28 Approved by: Haile Machado M.D. on 07/22/2025 at 15:32
== END ==
PROVIDERS: Family Provider Family Medicine; PCP Family Medicine; Referring Provider Family Medicine; Visit Provider Family Medicine
DX: J18.9 Pneumonia, unspecified organism (principal)
CPT/HCPCS: 71046